=== PATIENT | female | born 2000 | race Asian ===

== ENCOUNTER 2021-07-10 09:39 | Inpatient (IN) | payer MEDICAID, OTHER ==
[~2021-07-10] VITALS: Ht 165.1 cm; Wt 104.5 kg
[2021-07-10 11:04] LABS: Basophils # (auto) 0 10 ^3/uL (0-0.2); Eosinophils # (auto) 0.2 10 ^3/uL (0-0.8); Eosinophils % (auto) 2.7 % (0.0-7.0); Hemoglobin 14.2 g/dL (12.2-16.2); Lymphocytes # (auto) 1.3 10 ^3/uL (0.4-5.4); Monocytes # (auto) 0.7 10 ^3/uL (0-1.3); Monocytes % (auto) 8.4 % (0.0-12.0); Neutrophils # (auto) 6.2 10 ^3/uL (1.6-8.6); Neutrophils % (auto) 73.2 % (37.0-80.0)
[2021-07-10 11:08] LABS: Urine Bacteria NONE SEEN /hpf (None Seen); Urine Blood Negative /uL (Negative); Urine Mucus FEW (None Seen); Urine Specific Gravity 1.022 (1.001-1.035); Urine WBC 3 /hpf (0 - 5)
[2021-07-10 11:08] LABS: Basophils % (auto) 0.5 % (0.0-2.0); Hematocrit 42.5 % (36.0-46.0); Lymphocytes % (auto) 15.2 % (10.0-50.0); Mean Corpuscular Hemoglobin 26.3 pg (28.0-32.0); Mean Corpuscular Hgb Conc. 33.4 g/dL (32.0-36.0); Mean Corpuscular Volume 78.7 fL (80.0-100.0); Red Cell Distribution Width 13.7 % (11.8-14.3); White Blood Cell 8.4 10^3/uL (4.4-10.8)
[2021-07-10] MEDS ORDERED: IBUPROFEN 800 MG TAB PO ONE (11:15)
[2021-07-10 11:16] LABS: Albumin 3.9 g/dL (3.4-5.0); Anion Gap 5 (5-15); Blood Urea Nitrogen 7 mg/dL (7-18); Calcium 8.8 mg/dL (8.5-10.1); Carbon Dioxide 24 mmol/L (21-32); Chloride 107 mmol/L (98-107); Glucose 96 mg/dL (74-106); INR 1.13 (0.9-1.15); Lipase 127 U/L (73-393); Magnesium 2.2 mg/dL (1.6-2.6); Partial Thromboplastin Time 27.1 sec (23.6-33.0); Potassium 3.6 mmol/L (3.5-5.1); Sodium 136 mmol/L (136-145)
[2021-07-10 11:21] LABS: Alanine Aminotransferase 332 U/L (13-56); Alkaline Phosphatase 201 U/L (45-117); Aspartate Aminotransferase 159 U/L (15-37); BUN/Creatinine Ratio 10.1; Bilirubin, Total 7.2 mg/dL (0.2-1.0); GFR African American 139 mL/min; GFR Non-African American 115 mL/min; Total Protein 8.2 g/dL (6.4-8.2)
[2021-07-10] MEDS ORDERED: cefTRIAXone 1GM/50ML D5W 50 ML IV ONE (12:00)
[2021-07-10] MEDS ORDERED: metroNIDAZOLE 500MG/100ML 100 ML IV ONE (12:00)
[2021-07-10] MEDS ORDERED: MORPHINE SULFATE INJECTION 2 MG/ML SYRG IV ONE (12:00)
[2021-07-10] MEDS ORDERED: ONDANSETRON HCL 4 MG/2 ML VIAL IV ONE (12:00)
[2021-07-10] MEDS ORDERED: SODIUM CHLORIDE 0.9% 1,000 ML IV ONE (12:00)
[2021-07-10] MEDS ORDERED: MORPHINE SULFATE INJECTION 2 MG/ML SYRG IV PRN (16:45)
[2021-07-10] MEDS ORDERED: NITROGLYCERIN 0.4 MG SL TAB SL PRN (16:45)
[2021-07-10 17:38] VITALS: BP 136/82
[2021-07-10] MEDS: D5W/SOD CHL 0.45%/KCL 20MEQ 1,000 ML IV SCH (18:14)
[2021-07-10] MEDS: MORPHINE SULFATE INJECTION 2 MG/ML SYRG IV PRN (18:15)
[2021-07-10] MEDS: PIPERACILLIN-TAZOB 3.375GM 100 ML IV SCH (21:38)
[2021-07-10 22:00] VITALS: BP 108/59
[2021-07-11] MEDS: D5W/SOD CHL 0.45%/KCL 20MEQ 1,000 ML IV SCH ×3 (02:21→21:44)
[2021-07-11 05:00] VITALS: BP 104/58
[2021-07-11] MEDS: PIPERACILLIN-TAZOB 3.375GM 100 ML IV SCH ×3 (05:12→21:44)
[2021-07-11 05:36] LABS: Basophils # (auto) 0 10 ^3/uL (0-0.2); Basophils % (auto) 0.6 % (0.0-2.0); Eosinophils # (auto) 0.3 10 ^3/uL (0-0.8); Eosinophils % (auto) 4.4 % (0.0-7.0); Hematocrit 39.5 % (36.0-46.0); Hemoglobin 13.3 g/dL (12.2-16.2); Lymphocytes # (auto) 1.5 10 ^3/uL (0.4-5.4); Lymphocytes % (auto) 25.4 % (10.0-50.0); Mean Corpuscular Hemoglobin 26.6 pg (28.0-32.0); Mean Corpuscular Hgb Conc. 33.7 g/dL (32.0-36.0); Mean Corpuscular Volume 79.1 fL (80.0-100.0); Monocytes # (auto) 0.7 10 ^3/uL (0-1.3); Monocytes % (auto) 12.6 % (0.0-12.0); Neutrophils # (auto) 3.3 10 ^3/uL (1.6-8.6); Red Blood Cells 4.99 10^6/uL (4.0-5.20); Red Cell Distribution Width 13.9 % (11.8-14.3); White Blood Cell 5.9 10^3/uL (4.4-10.8)
[2021-07-11 06:02] LABS: Albumin 3.3 g/dL (3.4-5.0); BUN/Creatinine Ratio 10.5; Bilirubin, Total 6.6 mg/dL (0.2-1.0); Calcium 8.4 mg/dL (8.5-10.1); Total Protein 7.1 g/dL (6.4-8.2)
[2021-07-11] MEDS: PANTOPRAZOLE 40 MG/10 ML VIAL INJ IV SCH (09:16)
[2021-07-11 13:00] VITALS: BP 106/68
[2021-07-11] MEDS: MORPHINE SULFATE INJECTION 2 MG/ML SYRG IV PRN ×2 (15:06→21:49)
[2021-07-11] MEDS: ONDANSETRON HCL 4 MG/2 ML VIAL IV PRN ×2 (15:06→21:48)
[2021-07-11 17:00] VITALS: BP 118/67
[2021-07-11 22:00] VITALS: BP 110/62
[2021-07-12 05:17] VITALS: BP 102/53
[2021-07-12] MEDS: PIPERACILLIN-TAZOB 3.375GM 100 ML IV SCH ×3 (06:36→22:44)
[2021-07-12 09:00] VITALS: BP 100/57
[2021-07-12] MEDS: PANTOPRAZOLE 40 MG/10 ML VIAL INJ IV SCH (09:06)
[2021-07-12] MEDS ORDERED: LIDOCAINE 2%HCL (LOCAL ANESTH.) INJ 20ML MDV ONE ×4 (09:32→10:47)
[2021-07-12] MEDS: D5W/SOD CHL 0.45%/KCL 20MEQ 1,000 ML IV SCH ×2 (09:36→18:45)
[2021-07-12] MEDS ORDERED: IODIXANOL 320MG/ML 100ML BTL IV ONE (09:36)
[2021-07-12] MEDS ORDERED: fentaNYL CITRATE 100 MCG/2 ML VL ONE (10:14)
[2021-07-12] MEDS ORDERED: MIDAZOLAM HCL 2MG/2ML 2ml VIAL (1mg/ml) ONE ×2 (10:14→11:05)
[2021-07-12] MEDS ORDERED: KETOROLAC TROMETH 30 MG/ML 1ML VIAL IV ONE (10:30)
[2021-07-12] MEDS ORDERED: HYDROmorphone HCL 2 MG/ML VL ONE ×2 (10:30→12:04)
[2021-07-12] MEDS ORDERED: ONDANSETRON HCL 4 MG/2 ML VIAL ONE (10:31)
[2021-07-12] MEDS ORDERED: KETOROLAC TROMETH 30 MG/ML 1ML VIAL ONE (10:32)
[2021-07-12] MEDS ORDERED: IOHEXOL 350 MG/ML 100ML IJ ONE (10:40)
[2021-07-12] MEDS ORDERED: cefTRIAXone 1GM/50ML D5W 50 ML IV ONE (11:37)
[2021-07-12 14:15] VITALS: BP 108/81
[2021-07-12 17:00] VITALS: BP 89/60
[2021-07-12 18:10] VITALS: BP 108/53
[2021-07-12 22:00] VITALS: BP 96/55
[2021-07-13] MEDS: ONDANSETRON HCL 4 MG/2 ML VIAL IV PRN ×2 (04:16→13:50)
[2021-07-13] MEDS: MORPHINE SULFATE INJECTION 2 MG/ML SYRG IV PRN ×5 (04:17→23:45)
[2021-07-13] MEDS: D5W/SOD CHL 0.45%/KCL 20MEQ 1,000 ML IV SCH ×3 (04:45→14:45)
[2021-07-13 05:00] VITALS: BP 137/72
[2021-07-13] MEDS: PIPERACILLIN-TAZOB 3.375GM 100 ML IV SCH ×2 (06:13→13:50)
[2021-07-13 08:00] VITALS: BP 135/71
[2021-07-13] MEDS: PANTOPRAZOLE 40 MG/10 ML VIAL INJ IV SCH (09:42)
[2021-07-13 10:18] LABS: Bilirubin, Total 3.1 mg/dL (0.2-1.0)
[2021-07-13 12:00] VITALS: BP 144/72
[2021-07-13 16:00] VITALS: BP 125/84
[2021-07-13 22:00] VITALS: BP 108/62
[2021-07-14] MEDS: PIPERACILLIN-TAZOB 3.375GM 100 ML IV SCH ×4 (00:05→22:31)
[2021-07-14 05:00] VITALS: BP 110/65
[2021-07-14] MEDS: D5W/SOD CHL 0.45%/KCL 20MEQ 1,000 ML IV SCH ×3 (06:49→20:45)
[2021-07-14 08:00] VITALS: BP 125/61
[2021-07-14] MEDS: PANTOPRAZOLE 40 MG/10 ML VIAL INJ IV SCH (08:57)
[2021-07-14] MEDS: ONDANSETRON HCL 4 MG/2 ML VIAL IV PRN ×2 (08:58→17:53)
[2021-07-14] MEDS: MORPHINE SULFATE INJECTION 2 MG/ML SYRG IV PRN ×4 (08:58→22:48)
[2021-07-14 12:00] VITALS: BP 123/68
[2021-07-14 16:00] VITALS: BP 129/65
[2021-07-14 22:00] VITALS: BP 98/52
[2021-07-15] MEDS: D5W/SOD CHL 0.45%/KCL 20MEQ 1,000 ML IV SCH ×2 (04:21→16:45)
[2021-07-15 05:02] VITALS: BP 122/66
[2021-07-15 06:33] LABS: Basophils # (auto) 0 10 ^3/uL (0-0.2); Basophils % (auto) 0.4 % (0.0-2.0); Eosinophils # (auto) 0.3 10 ^3/uL (0-0.8); Eosinophils % (auto) 4.2 % (0.0-7.0); Hemoglobin 13.2 g/dL (12.2-16.2); Lymphocytes # (auto) 1.5 10 ^3/uL (0.4-5.4); Lymphocytes % (auto) 18.5 % (10.0-50.0); Mean Corpuscular Hemoglobin 27.3 pg (28.0-32.0); Mean Corpuscular Hgb Conc. 33.8 g/dL (32.0-36.0); Mean Corpuscular Volume 80.8 fL (80.0-100.0); Monocytes # (auto) 0.7 10 ^3/uL (0-1.3); Monocytes % (auto) 8.5 % (0.0-12.0); Neutrophils # (auto) 5.4 10 ^3/uL (1.6-8.6); Neutrophils % (auto) 68.4 % (37.0-80.0); Red Blood Cells 4.83 10^6/uL (4.0-5.20); Red Cell Distribution Width 14.1 % (11.8-14.3); White Blood Cell 7.9 10^3/uL (4.4-10.8)
[2021-07-15] MEDS: PIPERACILLIN-TAZOB 3.375GM 100 ML IV SCH ×3 (06:36→22:05)
[2021-07-15 07:04] LABS: Potassium 3.8 mmol/L (3.5-5.1)
[2021-07-15 07:09] LABS: Albumin 2.9 g/dL (3.4-5.0); BUN/Creatinine Ratio 17.3; Calcium 8.3 mg/dL (8.5-10.1)
[2021-07-15 07:19] LABS: Bilirubin, Total 1.6 mg/dL (0.2-1.0)
[2021-07-15] MEDS ORDERED: ceFAZolin 1GM/50ML 100 ML IV ONE (08:31)
[2021-07-15 09:00] VITALS: BP 144/85
[2021-07-15] MEDS ORDERED: LIDOCAINE W/ EPINEPHRINE 1% 20ML VIAL ONE (09:22)
[2021-07-15] MEDS ORDERED: BUPIVACAINE 0.5% MPF INJ 30ML SDV IJ ONE (09:23)
[2021-07-15] MEDS ORDERED: FAMOTIDINE (10MG/ML) 2ML VL IV ONE (09:29)
[2021-07-15] MEDS ORDERED: GLYCOPYRROLATE 0.2 MG/ML 1ML VIAL ONE (09:40)
[2021-07-15] MEDS ORDERED: DexAMETHasone SOD PHOS 10MG/1ML VIAL INJ ONE (09:40)
[2021-07-15] MEDS ORDERED: HYDROmorphone HCL 2 MG/ML VL ONE (09:40)
[2021-07-15] MEDS ORDERED: KETOROLAC TROMETH 30 MG/ML 1ML VIAL ONE (09:40)
[2021-07-15] MEDS ORDERED: fentaNYL CITRATE 100 MCG/2 ML VL ONE (09:40)
[2021-07-15] MEDS ORDERED: MIDAZOLAM HCL 2MG/2ML 2ml VIAL (1mg/ml) ONE (09:40)
[2021-07-15] MEDS ORDERED: PROPOFOL 10 MG/ML 20 ML IV ONE (09:41)
[2021-07-15] MEDS ORDERED: LIDOCAINE 2% (LOCAL ANESTH.) PF 5ml SDV ONE (09:41)
[2021-07-15] MEDS ORDERED: ONDANSETRON HCL 4 MG/2 ML VIAL ONE (09:41)
[2021-07-15] MEDS ORDERED: POVIDONE IODINE 10 % TOPICAL OINT 30GM TOP ONE (10:44)
[2021-07-15] MEDS ORDERED: ONDANSETRON HCL 4 MG/2 ML VIAL IV PRN (11:15)
[2021-07-15] MEDS ORDERED: HYDROmorphone HCL 2 MG/ML VL IV PRN (11:15)
[2021-07-15] MEDS ORDERED: SUGAMMADEX 200mg/2ml Vial (100MG/ML) IV ONE (13:52)
[2021-07-15] MEDS: PANTOPRAZOLE 40 MG/10 ML VIAL INJ IV SCH (14:20)
[2021-07-15] MEDS: MORPHINE SULFATE INJECTION 2 MG/ML SYRG IV PRN ×3 (14:21→23:40)
[2021-07-15 17:00] VITALS: BP 130/64
[2021-07-15] MEDS: ONDANSETRON HCL 4 MG/2 ML VIAL IV PRN (20:38)
[2021-07-15 22:00] VITALS: BP 117/60
[2021-07-16 05:00] VITALS: BP 107/62
[2021-07-16] MEDS: PIPERACILLIN-TAZOB 3.375GM 100 ML IV SCH (05:22)
[2021-07-16] MEDS: D5W/SOD CHL 0.45%/KCL 20MEQ 1,000 ML IV SCH (05:22)
[2021-07-16] MEDS: MORPHINE SULFATE INJECTION 2 MG/ML SYRG IV PRN (05:22)
[2021-07-16 08:02] LABS: Basophils # (auto) 0 10 ^3/uL (0-0.2); Basophils % (auto) 0.2 % (0.0-2.0); Eosinophils # (auto) 0 10 ^3/uL (0-0.8); Eosinophils % (auto) 0.2 % (0.0-7.0); Hematocrit 38.3 % (36.0-46.0); Hemoglobin 12.9 g/dL (12.2-16.2); Lymphocytes # (auto) 1.7 10 ^3/uL (0.4-5.4); Lymphocytes % (auto) 14.1 % (10.0-50.0); Mean Corpuscular Hemoglobin 26.6 pg (28.0-32.0); Mean Corpuscular Hgb Conc. 33.6 g/dL (32.0-36.0); Mean Corpuscular Volume 79.1 fL (80.0-100.0); Monocytes % (auto) 8.4 % (0.0-12.0); Neutrophils # (auto) 9.4 10 ^3/uL (1.6-8.6); Neutrophils % (auto) 77.1 % (37.0-80.0); Red Blood Cells 4.84 10^6/uL (4.0-5.20); White Blood Cell 12.2 10^3/uL (4.4-10.8)
[2021-07-16 09:00] VITALS: BP 124/67
[2021-07-16] MEDS: PANTOPRAZOLE 40 MG/10 ML VIAL INJ IV SCH (09:21)
[2021-07-16] MEDS ORDERED: HYDROcodone-ACET 5/325MG TAB PO PRN (10:30)
[2021-07-16] MEDS ORDERED: METR500T PO (10:36)
[2021-07-16] MEDS ORDERED: FAMO20TA10 PO (10:36)
[2021-07-16] MEDS ORDERED: LEVO-28 PO (10:36)
[2021-07-16 13:33] VITALS: BP 95/47
== END 2021-07-16 14:40 | disposition home or self-care (01) | DRG 263 ==
LOC: ER 09:39 → WEST WING 16:44
PROVIDERS: ADMIT Nurse Practitioner Acute Care; ATTEND Internal Medicine
PROC: BF13YZZ Fluoroscopy of Gallbladder and Bile Ducts using Other Contrast (ICD-10-PCS; 2021-07-12)
PROC: 0F793ZZ Dilation of Common Bile Duct, Percutaneous Approach (ICD-10-PCS; 2021-07-12)
PROC: BF42ZZZ Ultrasonography of Gallbladder (ICD-10-PCS; 2021-07-12)
PROC: 0F9430Z Drainage of Gallbladder with Drainage Device, Percutaneous Approach (ICD-10-PCS; 2021-07-12)
PROC: 0FC93ZZ Extirpation of Matter from Common Bile Duct, Percutaneous Approach (ICD-10-PCS; 2021-07-12)
PROC: 0FT44ZZ Resection of Gallbladder, Percutaneous Endoscopic Approach (ICD-10-PCS; principal; 2021-07-15 09:41)
DX: K80.43 Calculus of bile duct with acute cholecystitis with obstruction (principal); E66.01 Morbid (severe) obesity due to excess calories; N39.0 Urinary tract infection, site not specified; K82.8 Other specified diseases of gallbladder; F12.90 Cannabis use, unspecified, uncomplicated; E80.6 Other disorders of bilirubin metabolism; R53.83 Other fatigue; Z20.822 Contact with and (suspected) exposure to COVID-19; Z68.38 Body mass index [BMI] 38.0-38.9, adult; Z81.8 Family history of other mental and behavioral disorders; Z82.3 Family history of stroke; Z82.49 Family history of ischemic heart disease and other diseases of the circulatory system; Z83.3 Family history of diabetes mellitus
CPT/HCPCS: 36415; 74176; 74181; 76705; 76942; 80053; 81001; 81025; 82150; 82247; 83690; 83735; 84460; 84484; 85025; 85379; 85610; 85730; 86850; 86900; 86901; 87426; 96365; 96367; 96375; 99152; C1729; C1887; C9113; G0378; J0690; J0696; J1100; J1885; J2001; J2250; J2405; J2543; J2704; J3490; Q9967